=== PATIENT | male | born 1970 | race African-American/Black ===

== ENCOUNTER 2016-10-04 11:09 | Emergency (ER) | payer SELFPAY ==
[2016-10-04 11:13] VITALS: BP 163/98
--- NOTE | 2016-10-04 11:54 | ER Document Report ---
HPI - HPI Pain Level: 4 Notes: Patient is a 45-year-old male who presents the ED complaining of left upper tooth pain and swelling 3 days. Patient states that he has chronic poor dentition and has denture placement. Patient states that this tooth was still there and the dentures were placed around it that she had fallen out months ago. Patient states he noticed swelling more so yesterday than today with some discharge at the time. He has been taking [id number] anti-inflammatories with minimal relief. Patient states that he does have an appointment with a dentist this . His PCM is Dr. Kaur. Patient states that the pain tends to radiate up towards his left ear. Otherwise she still eating and drinking without any problems. Denies any daily medications or significant past medical history otherwise. Patient has an allergy to sulfa antibiotics. Patient does smoke but denies any other illicit drug use. Denies any fever, headache, tinnitus, dizziness, URI, sore throat, dysphagia, chest pain, palpitations, syncope, cough, wheeze, shortness of breath, abdominal pain, nausea/vomiting/diarrhea, dysuria, joint pains, rash. - ROS Notes: REVIEW OF SYSTEMS: CONSTITUTIONAL : Denies fever, chills, or sweats. Denies recent illness. EENT: see hpi CARDIOVASCULAR: Denies chest pain. Denies palpitations or racing or irregular heart beat. Denies ankle edema. RESPIRATORY: Denies cough, cold, or chest congestion. Denies shortness of breath, difficulty breathing, or wheezing. GASTROINTESTINAL: Denies abdominal pain or distention. Denies nausea, vomiting , or diarrhea. Denies blood in vomitus, stools, or per rectum. Denies black, tarry stools. Denies constipation. GENITOURINARY: Denies difficulty urinating, painful urination, burning, frequency, blood in urine, or discharge. MUSCULOSKELETAL: Denies back or neck pain or stiffness. Denies joint pain or swelling. SKIN: Denies rash, lesions or sores. NEUROLOGICAL: Denies confusion or altered mental status. Denies passing out or loss of consciousness. Denies dizziness or lightheadedness. Denies headache. Denies weakness or paralysis or loss of use of either side. Denies problems with gait or speech. Denies sensory loss, numbness, or tingling. ALL OTHER SYSTEMS REVIEWED AND NEGATIVE. Dictation was performed using [employer] voice recognition software - DERM Skin Color: Normal Past Medical History - Social History Smoking Status: Current Every Day Smoker Family History: Reviewed & Not Pertinent Patient has suicidal ideation: No Patient has homicidal ideation: No Renal/ Medical History: Denies: Hx Peritoneal Dialysis Vertical Provider Document - CONSTITUTIONAL Agree With Documented VS: Yes Notes: PHYSICAL EXAMINATION: GENERAL: Well-appearing, well-nourished and in no acute distress. HEAD: Atraumatic, normocephalic. EYES: Pupils equal round and reactive to light, extraocular movements intact, sclera anicteric, conjunctiva are normal. ENT: EAC clear b/l. TM's intact b/l without erythema, fluid, or perforation. Nares patent and without discharge. oropharynx clear without exudates. No tonsilar hypertrophy or erythema. Moist mucous membranes. No sinus tenderness. Mouth: Denture placement with opening where tooth used to be #10. + mild erythema. No obvious abscess or discharge. + tenderness. No luis felipe's. No lymphadenopathy to neck. NECK: Normal range of motion, supple without lymphadenopathy. No rigidity. LUNGS: Breath sounds clear to auscultation bilaterally and equal. No wheezes rales or rhonchi. HEART: Regular rate and rhythm without murmurs, rubs, gallops. Extremities: No cyanosis, clubbing, or edema b/l. Peripheral pulses 2+. Capillary refill less than 3 seconds. PSYCH: Normal mood, normal affect. SKIN: Warm, Dry, normal turgor, no rashes or lesions noted. - INFECTION CONTROL TRAVEL OUTSIDE OF THE [place] IN LAST 30 DAYS: No - RESPIRATORY O2 Sat by Pulse Oximetry: 100 Course - Re-evaluation Re-evalutation: 10/04/16 11:53 Patient is an afebrile, well-hydrated, 45-year-old male presents the ED with possible infection to #10, where tooth used to be. Vitals are stable. PE otherwise unremarkable. Low suspicion for any blood leaks, meningitis, sepsis, pharyngeal/tonsillar abscess, respiratory compromise. I will cover him with clindamycin 300 mg 3 times daily 10 days. Continue conservative measures otherwise as needed. Keep consult with dentist in 3 days. Recheck with your PCM this week. Return to the ED with any worsening/concerning symptoms otherwise as reviewed. Patient is in agreement. - Vital Signs Vital signs: Temp Pulse Resp BP Pulse Ox 98.1 F 91 20 163/98 H 100 10/04/16 11:12 10/04/16 11:12 10/04/16 11:12 10/04/16 11:12 10/04/16 11:12 Discharge - Discharge Clinical Impression: Toothache Condition: Stable Disposition: HOME, SELF-CARE Instructions: Clindamycin ([facility]), Toothache ([facility]) Additional Instructions: [place] and floss twice daily Tylenol/ibuprofen as needed Mouthwash, peroxide rinses daily Keep appointment with dentist on Recheck with PCM this week Return to the ED with any development of fever, headache, worsening swelling/ pain, purulent discharge, trouble swallowing/breathing, trouble with speech, neck pain/stiffness, chest pain, palpitations, syncope, cough, shortness of breath, dyspnea, wheezing, abdominal pain, nausea/vomiting, joint pains, or any other worsening/concerning symptoms otherwise as needed. Prescriptions: Clindamycin HCl [Cleocin 300 mg Capsule] 300 mg PO TID #30 capsule Forms: Elevated Blood Pressure, Smoking Cessation Education Referrals: [facility] [Provider Group] - Follow up as needed
== END 2016-10-04 12:00 | disposition home or self-care (01) ==
LOC: ER 11:09
DX: K08.9 Disorder of teeth and supporting structures, unspecified (principal); F17.200 Nicotine dependence, unspecified, uncomplicated
CPT/HCPCS: 99282